=== PATIENT | male | born 2000 | race Caucasian/White ===

== ENCOUNTER → 2024-07-17 17:27 | Outpatient (ROUT) | payer OTHER, SELFPAY ==
[2024-07-17 19:04] LABS: Urine N gonorrhoeae NOT DETECTED
[2024-07-17 19:21] LABS: Urine Chlamydia NOT DETECTED
== END ==
PROVIDERS: Visit Provider Physician Assistant Medical
DX: R21 Rash and other nonspecific skin eruption (principal)
CPT/HCPCS: 87491; 87591